=== PATIENT | female | born 1935 | race Caucasian/White ===

== ENCOUNTER → 2017-11-03 | Outpatient (CLI) | payer OTHER ==
[~2017-11-03] MED LIST: ARTIFICIAL TEA1 EACH BOTHEYES; ASPI81CH PO; ASPI81EC PO; ATEN25 PO; CALCAVITD PO; CEPH500 PO; CYAN1000 PO; DOCU100 PO; DONE5 PO; FERR325 PO; FURO20 PO; HYDACE5 PO; HYDCHL25 PO; Hair, Skin & N1 EACH PO; LISI5 PO; METH5 PO; MORP20ER PO; NITR100CA PO; OMEP20ER PO; OXYACE5T PO; POLY17UD PO; POTA8 PO; PSYL5.85P PO; SENN187 PO; SENNA; SERT25 PO; VITAMIN D31000 UNIT PO
[2017-11-03 10:50] LABS: Source, Urine Catheter
[2017-11-03 11:08] LABS: Appearance, Urine Hazy (Clear); Bilirubin, Urine Neg (Neg); Blood, Urine 1+ (Neg); Color, Urine Yellow (P-Yellow); Glucose Qualitative, Urine Neg (Neg); Ketones, Urine Neg (Neg); Leukocyte Esterase, Urine 3+ (Neg); Nitrite, Urine Pos (Neg); Protein, Urine 1+ (Neg); Specific Gravity, Urine 1.015 (1.003-1.022); Urobilinogen, Urine NORM (Normal)
[2017-11-03 11:22] LABS: White Blood Cells, Urine TNTC /hpf (0-5)
[2017-11-03 11:23] LABS: Bacteria Many /hpf; Squamous Epithelial Cells Rare /hpf (Few)
== END | disposition home or self-care (01) ==
LOC: LAB RH 10:49
PROVIDERS: Family Medicine
DX: N39.0 Urinary tract infection, site not specified (principal)
CPT/HCPCS: 81001; 87077; 87086; 87186

== ENCOUNTER → 2017-11-04 | Outpatient (CLI) | payer OTHER | END | disposition home or self-care (01) | LOC: LAB RH 00:01 | DX: N39.0 Urinary tract infection, site not specified (principal) ==

== ENCOUNTER 2019-05-11 08:20 | Inpatient (IN) | payer OTHER ==
[~2019-05-11] VITALS: Ht 154.9 cm; Wt 68.0 kg
[~2019-05-11 08:20] MED LIST changes: +POTA10T PO; -POTA8 PO
[2019-05-11 09:00] LABS: BASOPHILS ABSOLUTE AUTO 0.03 K/mm3 (0.00-0.23); BASOPHILS PERCENT AUTO 0 % (0-2); EOSINOPHILS ABSOLUTE AUTO 0.33 K/mm3 (0.00-0.68); EOSINOPHILS PERCENT AUTO 5 % (0-6); Hematocrit 30.6 % (33.0-51.0); IMMATURE GRAN ABSOLUTE AUTO 0.08 K/mm3 (0.00-0.10); IMMATURE GRAN PERCENT AUTO 1 % (0-1); LYMPHOCYTES ABSOLUTE AUTO 1.26 K/mm3 (0.84-5.20); LYMPHOCYTES PERCENT AUTO 18 % (21-46); MONOCYTES ABSOLUTE AUTO 0.95 K/mm3 (0.16-1.47); MONOCYTES PERCENT AUTO 14 % (4-13); Mean Corpuscular HGB 31.1 pg (26.0-34.0); Mean Corpuscular HGB Conc 32.7 g/dL (31.5-36.5); Mean Corpuscular Volume 95 fL (80-100); Mean Platelet Volume 11.4 fL (9.1-12.4); NEUTROPHILS ABSOLUTE AUTO 4.29 K/mm3 (1.96-9.15); NEUTROPHILS PERCENT AUTO 62 % (41-73); Platelet Count 132 K/mm3 (150-400); RDW Coefficient Variation 12.9 % (11.7-14.2); RDW Standard Deviation 44.7 fL (35.1-46.3); Red Blood Cell Count 3.22 M/mm3 (3.80-5.20); White Blood Cell Count 6.94 K/mm3 (4.00-11.30)
[2019-05-11 09:27] LABS: Alanine Aminotransfer (ALT/SGP 47 U/L (12-78); Albumin, Blood 2.9 g/dL (3.4-5.0); Albumin/Globulin Ratio 0.7 (0.8-1.8); Alk Phos 161 U/L (50-136); Anion Gap 7 mmol/L (6-16); Aspartate Aminotrans (AST/SGOT 50 U/L (12-37); Bilirubin, Total 1.2 mg/dL (0.1-1.0); Blood Urea Nitrogen 29 mg/dL (8-24); Bun/Creatinine Ratio 31.5 (12.0-20.0); CO2, Blood 32 mmol/L (21-32); Calcium, Blood 8.8 mg/dL (8.5-10.1); Chloride, Blood 103 mmol/L (98-108); Creatinine, Blood 0.92 mg/dL (0.40-1.00); Globulin, Blood 4.1 g/dL (2.2-4.0); Glomerular Filtration Rate >60 (60-); Glucose, Blood 104 mg/dL (70-99); Potassium, Blood 2.8 mmol/L (3.5-5.5); Sodium, Blood 142 mmol/L (136-145)
[2019-05-11] MEDS ORDERED: MIRALAX17 GM PO (14:26)
[2019-05-11] MEDS ORDERED: LACT10SY PO (14:27)
[2019-05-11] MEDS ORDERED: Metamucil Smooth1 EA PO (14:28)
[2019-05-11] MEDS ORDERED: MORP15ER PO (14:31)
[2019-05-11] MEDS ORDERED: Feverall650 MG PR (14:34)
[2019-05-11] MEDS ORDERED: BISA10S PR (14:35)
[2019-05-11] MEDS ORDERED: Cough Syru100 MG/5 M PO (14:37)
[2019-05-11] MEDS ORDERED: Magnesium Citr296 ML PO (14:46)
[2019-05-11] MEDS ORDERED: ACET325 PO (14:48)
--- NOTE | 2019-05-11 15:00 | NUR ---
PT ADMITTED TO ROOM 312 FROM ED VIA [facility]. REQUIRED [facility] ASSIST TO TRANSFER FROM THERE TO BED WITH HER CRYING OUT. ALERT BUT CONFUSED. ABLE TO HEAR FROM L EAR AND RESPOND APPROPRIATELY BUT DOESN'T RESPOND OTHERWISE.
--- NOTE | 2019-05-11 19:46 | NUR ---
SHIFT SUMMARY DAUGHTER AT BEDSIDE AND DISCUSSED POLST IN CHART AND GOT CODE STATUS CHANGED. PT HASN'T ATTEMPTED TO CLIMB OOB BUT HAS BEEN INCONTINENT. TAKING MEDS WHOLE WITH NOT PROBLEM. FEEDING SELF. AT TIMES HAS AUDIBLE WHEEZES. ENCOURAGED TO KEEP O2 ON BUT REMOVES IT FREQUENTLY AND SAYS SHE DOESN'T WANT IT.
[2019-05-12 04:49] LABS: BASOPHILS ABSOLUTE AUTO 0.02 K/mm3 (0.00-0.23); BASOPHILS PERCENT AUTO 0 % (0-2); EOSINOPHILS ABSOLUTE AUTO 0.05 K/mm3 (0.00-0.68); EOSINOPHILS PERCENT AUTO 1 % (0-6); Hematocrit 26.2 % (33.0-51.0); Hemoglobin 8.7 g/dL (11.5-16.0); IMMATURE GRAN ABSOLUTE AUTO 0.09 K/mm3 (0.00-0.10); IMMATURE GRAN PERCENT AUTO 2 % (0-1); LYMPHOCYTES ABSOLUTE AUTO 0.97 K/mm3 (0.84-5.20); LYMPHOCYTES PERCENT AUTO 16 % (21-46); MONOCYTES ABSOLUTE AUTO 0.66 K/mm3 (0.16-1.47); MONOCYTES PERCENT AUTO 11 % (4-13); Mean Corpuscular HGB 30.5 pg (26.0-34.0); Mean Corpuscular HGB Conc 33.2 g/dL (31.5-36.5); Mean Platelet Volume 10.7 fL (9.1-12.4); NEUTROPHILS ABSOLUTE AUTO 4.36 K/mm3 (1.96-9.15); NEUTROPHILS PERCENT AUTO 71 % (41-73); Platelet Count 141 K/mm3 (150-400); RDW Coefficient Variation 12.8 % (11.7-14.2); RDW Standard Deviation 42.5 fL (35.1-46.3); Red Blood Cell Count 2.85 M/mm3 (3.80-5.20); White Blood Cell Count 6.15 K/mm3 (4.00-11.30)
[2019-05-12 04:50] LABS: Mean Corpuscular Volume 92 fL (80-100)
[2019-05-12 04:59] LABS: Anion Gap 7 mmol/L (6-16); Blood Urea Nitrogen 17 mg/dL (8-24); Bun/Creatinine Ratio 22.4 (12.0-20.0); CO2, Blood 31 mmol/L (21-32); Calcium, Blood 8.4 mg/dL (8.5-10.1); Chloride, Blood 104 mmol/L (98-108); Creatinine, Blood 0.76 mg/dL (0.40-1.00); Glomerular Filtration Rate >60 (60-); Glucose, Blood 98 mg/dL (70-99); Potassium, Blood 3.1 mmol/L (3.5-5.5); Sodium, Blood 142 mmol/L (136-145)
--- NOTE | 2019-05-12 05:01 | NUR ---
Shift summary: Pt very confused and almost deaf. Pt has no idea why or where she is. Curses alot in response to any question. Was able to get meds down with water after some convincing. Pt has occas cough. Iv pulled out by patient and restarted in right arm. Pt has large area of yeast on back nyasia area and back. Nystatin applied and picture was taken.
--- NOTE | 2019-05-12 17:56 | NUR ---
PATIENT DID NOT EAT DINNER THIS SHIFT DUE TO NOT BEING AWAKE ENOUGH. RN NOTIFIED.
--- NOTE | 2019-05-12 18:49 | NUR ---
END OF SHIFT SUMMARY: PATIENT REPORTED FEELING POORLY THIS MORNING. BY THIS EVENING, PATIENT WAS RESTING COMFORTABLY. PATIENT UP TO CHAIR FOR LUNCH. PATIENT APPEARED TO ENJOY BEING UP IN THE CHAIR EVIDENCED BY HER SMILE AND LOOKING AROUND THE ROOM AND INTO THE HALLWAY. FAMILY AT BEDSIDE AT MULTIPLE TIMES. THEY REPORTED CONCERNS ABOUT THE CARE THAT SHE RECEIVES AT [facility]. MESSAGE LEFT FOR GUIDO SEN. PATIENT HAD SOME AUDIBLE WHEEZES THIS AM. UTILIZED RT TO ASSESS AND DETERMINE TREATMENT. PATIENT REPOSITIONED THROUGHOUT THE DAY TO ASSIST WITH BREATHING. PATIENT YELLS "I DON'T NEED OXYGEN" REPEATEDLY WHEN THE O2 IS PLACED. PROTECTIVE PADS PLACED ON PATIENTS ELBOWS FOR BLANCHABLE RED AREAS.
--- NOTE | 2019-05-12 19:16 | NUR ---
Pt visit this evening. Pt is resting in bed with her eyes closed. Offered gentle voice 3 times with Pt remaining a sleep. Spoke with bedside nurse Gladys and on comming bedside nurse and discussed case. Both nurses request a conversation regarding code status with family. Gladys reports no concerns with symptoms at this time. KANDIS reports bedside nurse yesterday briefly discussed current POLST in chart with family and family has elected to keep Pt full code at this time. KANDIS reports family will be here to visit Pt in the morning. Palliative Care will remain available.
--- NOTE | 2019-05-13 05:05 | NUR ---
Shift summary: Pt has slept thru most of shift with an occasional cough. I could not get pt to take her medications. Pt changed x 2 during the night. Pt is incontinent of stool and urine. Pt has large yeast infection on her backside. Nystatin applied. Pt very confused and will not follow commands and is almost deaf.
[2019-05-13 05:12] LABS: BASOPHILS ABSOLUTE AUTO 0.04 K/mm3 (0.00-0.23); BASOPHILS PERCENT AUTO 1 % (0-2); EOSINOPHILS ABSOLUTE AUTO 0.09 K/mm3 (0.00-0.68); EOSINOPHILS PERCENT AUTO 2 % (0-6); Hematocrit 30.3 % (33.0-51.0); IMMATURE GRAN ABSOLUTE AUTO 0.08 K/mm3 (0.00-0.10); IMMATURE GRAN PERCENT AUTO 1 % (0-1); LYMPHOCYTES PERCENT AUTO 10 % (21-46); MONOCYTES ABSOLUTE AUTO 0.54 K/mm3 (0.16-1.47); MONOCYTES PERCENT AUTO 9 % (4-13); Mean Corpuscular HGB 30.4 pg (26.0-34.0); Mean Corpuscular Volume 92 fL (80-100); Mean Platelet Volume 10.9 fL (9.1-12.4); NEUTROPHILS ABSOLUTE AUTO 4.53 K/mm3 (1.96-9.15); NEUTROPHILS PERCENT AUTO 77 % (41-73); Platelet Count 168 K/mm3 (150-400); RDW Coefficient Variation 12.7 % (11.7-14.2); RDW Standard Deviation 42.5 fL (35.1-46.3); Red Blood Cell Count 3.29 M/mm3 (3.80-5.20); White Blood Cell Count 5.88 K/mm3 (4.00-11.30)
[2019-05-13 05:32] LABS: Anion Gap 8 mmol/L (6-16); Blood Urea Nitrogen 12 mg/dL (8-24); Bun/Creatinine Ratio 18.8 (12.0-20.0); CO2, Blood 25 mmol/L (21-32); Calcium, Blood 8.9 mg/dL (8.5-10.1); Chloride, Blood 106 mmol/L (98-108); Creatinine, Blood 0.64 mg/dL (0.40-1.00); Glomerular Filtration Rate >60 (60-); Glucose, Blood 82 mg/dL (70-99); Potassium, Blood 3.6 mmol/L (3.5-5.5); Sodium, Blood 139 mmol/L (136-145)
--- NOTE | 2019-05-13 11:49 | NUR ---
PATIENT STATUS: LATE ENTRY: [address] NUNES ABOUT PATIENT'S STATUS. PATIENT RESPONDS TO PHYSICAL STIMULI (REPOSITIONING) AND WILL ANSWER SOME QUESTIONS WITH A GENERAL RESPONSE. PATIENT DOES NOT OPEN HER EYES TO STIMULI. THIS IS A CHANGE FROM YESTERDAY. DR. NUNES AWARE. DISCUSSED WITH PALLIATATIVE RN, ROSE MARIE. SHE WILL MEET WITH THE FAMILY AT 12:30.
--- NOTE | 2019-05-13 12:59 | NUR ---
MEDICATIONS AND FEEDING: ATTEMPTED AGAIN TO SEE IF PATIENT COULD BE ROUSED TO EAT OR TAKE MEDICATIONS SAFELY. PATIENT RESPONDED "YES" WHEN ASKED IF SHE WAS HUNGRY. UNABLE TO SAFELY MOVE TO THE CHAIR. PATIENT DID NOT OPEN EYES OR FOLLOW DIRECTIONS ENOUGH TO SAFELY ADMINISTER MEDICATIONS OR ATTEMPT TO FEED. NOTIFIED DR. NUNES. NEW ORDER FOR ANTIBIOTICS TO BE IV AGAIN. ALSO DISCUSSED THAT PATIENT WILL BE UNABLE TO GET HER LONG ACTING MORPHINE. DR. NUNES WILL ADDRESS. PATIENT IS AT BEDSIDE AND UNDERSTANDS INABILITY TO SAFELY FEED THEIR FAMILY MEMBER. MESSAGE LEFT FOR Jazmine ALVES-MARILU TO VISIT FAMILY PER FAMILY REQUEST.
--- NOTE | 2019-05-13 15:26 | NUR ---
Clinical Visit: Pt appears to be sleeping soundly. She did not wake during the time palliative was in the room. Two visits to this room today: Pt's daughter, Denae, is bedside. She reports that pt hasn't wanted to eat, sleeps all the time. Denae wanted to talk about placement, so Sonya Trimble was asked to see her. Called back to room to discuss hospice care. Family is ready to take this step, as they are watching the pt's decline. They have watched several family members on hospice and state "It's time." Filled out new POLST, answered questions for family. Placed call placed to Dr. Santos. He would like the IV restarted and antibiotic ran. Message left for nurse to restart IV and give medication. No other concerns with discharge. Did discuss with hospice liasonMine. Will remain available. ERIKA still needs signature and is in the chart.
--- NOTE | 2019-05-13 18:37 | NUR ---
END OF SHIFT SUMMARY: PATIENT CONTINUED TO BE LETHARGIC DURING SHIFT. RESPONSIVE TO VERBAL AND PHYSICAL STIMULI (REPOSITION AND CHANGES). PATIENT WOULD RESPOND TO YES AND NO QUESTIONS AT TIMES. PATIENT UNABLE TO FOLLOW DIRECTIONS OR OPEN EYES. PALLIATIVE CARE RNMiriam AND CIGAR HEAD PEGGERJazmine ABLE TO SPEAK WITH FAMILY. PLAN IS FOR THE PATIENT TO DISCHARGE ON HOSPICE TO [facility] TOMORROW. PATIENT APPEARED PAINFUL THIS EVENING WITH FURROWED BROWN AND RESTLESSNESS. SPOKE WITH DR. NUNES AND RECEIVED NEW ORDER FOR PO ROXANOL. MEDICATED ONCE AND REPOSITIONED PATIENT. PATIENT APPEARS CALM AND COMFORTABLE AT THIS TIME. FAMILY REQUESTS NO MORE BLOOD PRESSURES RELATED TO THE PAIN THAT IT CAUSES THE PATIENT. DR. NUNES INFORMED, NEW ORDER TO DISCONTINUE BLOOD PRESSURES RECEIVED. PATIENT TOLERATING IV ANTIBIOTICS WELL.
--- NOTE | 2019-05-14 01:00 | NUR ---
HOSPITALIST DR CHATMAN CHANGE CODE STATUS FROM FULL CODE TO DNR PER DR VIOLETA JAMES IN CHART ON 05/13/19. NO IV ACCESS ORDERED.
--- NOTE | 2019-05-14 04:22 | NUR ---
SHIFT SUMMARY PATIENT HAD NO ACUTE CHANGES OBSERVED. HX DEMENTIA, EXTREMELY SHOALWATER AND BEDFAST. TELE WAS DC'D ON DAY SHIFT AND REMOVE NOC SHIFT. PATIENT PULLED OUT IV AND NO IV ACCESS ORDERED PER HOSPITALIST DR CHATMAN. DR ALSO CHANGED CODE STATUS FROM FULL CODE TO DNR PER DR VIOLETA JAMES IN PATIENT CHART. PATIENT GOING ON HOSPICE TO [facility] PER DAY RN. ROXANOL 10 MG GIVEN PER GENERALIZE PAIN. PATIENT RESTLESS AND TRY TO EXIT BED X FOUR. AGITATES QUICKLY CURSING AT STAFF AND SETTLES BACK DOWN. DOESN'T USE CALL LIGHT. BED ALARM ACITVATED. WILL CONTINUE TO MONITOR UNTIL DAY SHIFT NURSE ASSUMES CARE. NO VITALS TAKEN PER ORDERS AND FAMILY.
--- NOTE | 2019-05-14 09:56 | NUR ---
PT. REFUSED ALL MEDS, KEPT YELLING, "GODDAMMIT GET AWAY FROM ME" OVER AND OVER AGAIN.
[2019-05-14] MEDS ORDERED: MORP20L SL (10:59)
[2019-05-14] MEDS ORDERED: FLUC100 PO (11:01)
[2019-05-14] MEDS ORDERED: ALBU2.5V5 INH (11:01)
[2019-05-14] MEDS ORDERED: Pedi-Dri 100,0060 GM TOP (11:02)
[2019-05-14] MEDS ORDERED: AMOC200S75 PO (11:02)
--- NOTE | 2019-05-14 11:38 | NUR ---
PT. TRANSFERRED TO [facility]IA [facility]. PT. RETURNING TO AND WILL BE ON HOSPICE. PT CLEAN AND DRY. REPORT CALLED TO NAM AMES AT [facility].
== END 2019-05-14 11:36 | DRG 177 ==
LOC: ER 08:20 → ERHOLD 08:21 → MEDS 13:12 → ENPENDDIS 05-14 09:05 → MEDS 05-14 11:36
PROVIDERS: Emergency Medicine; ADMIT Internal Medicine
DX: J69.0 Pneumonitis due to inhalation of food and vomit (principal); J96.01 Acute respiratory failure with hypoxia; Z51.5 Encounter for palliative care; D63.8 Anemia in other chronic diseases classified elsewhere; Z74.01 Bed confinement status; Z79.891 Long term (current) use of opiate analgesic; F03.90 Unspecified dementia, unspecified severity, without behavioral disturbance, psychotic disturbance, mood disturbance, and anxiety; R13.10 Dysphagia, unspecified; R21 Rash and other nonspecific skin eruption; I10 Essential (primary) hypertension; E78.5 Hyperlipidemia, unspecified; F32.9 Major depressive disorder, single episode, unspecified; Z86.73 Personal history of transient ischemic attack (TIA), and cerebral infarction without residual deficits; D64.9 Anemia, unspecified; Z87.891 Personal history of nicotine dependence; Z66 Do not resuscitate; E87.6 Hypokalemia; G89.29 Other chronic pain; H91.90 Unspecified hearing loss, unspecified ear
CPT/HCPCS: 36415; 71046; 80048; 80053; 83880; 85025; 92610; 93005; 93010; 94640; 94644; 94760; 96365; 96366; 96367; 99285-25; A9270; G0378; J0456; J0696; J1650; J3480; J7030; J7050

== ENCOUNTER 2019-10-25 19:36 | Emergency (ER) | payer OTHER ==
[~2019-10-25] VITALS: Ht 147.3 cm; Wt 45.4 kg
[~2019-10-25 19:36] MED LIST changes: +ACET325 PO; +ALBU2.5V5 INH; +AMOC200S75 PO; +BISA10S PR; +Cough Syru100 MG/5 M PO; +FLUC100 PO; +Feverall650 MG PR; +LACT10SY PO; +MIRALAX17 GM PO; +MORP15ER PO; +MORP20L SL; +Magnesium Citr296 ML PO; +Metamucil Smooth1 EA PO; +Pedi-Dri 100,0060 GM TOP
== END 2019-10-25 21:26 | disposition home or self-care (01) ==
LOC: ER 19:36
DX: M25.551 Pain in right hip (principal); S00.83XA Contusion of other part of head, initial encounter; W06.XXXA Fall from bed, initial encounter; Z88.2 Allergy status to sulfonamides; Z88.1 Allergy status to other antibiotic agents; Z91.040 Latex allergy status; Z79.899 Other long term (current) drug therapy; I10 Essential (primary) hypertension; E78.5 Hyperlipidemia, unspecified; D64.9 Anemia, unspecified; F03.90 Unspecified dementia, unspecified severity, without behavioral disturbance, psychotic disturbance, mood disturbance, and anxiety; Z87.891 Personal history of nicotine dependence
CPT/HCPCS: 73502; 99283-25

== ENCOUNTER → 2020-11-27 | Outpatient (CLI) | payer OTHER ==
[2020-11-27 11:41] LABS: Alanine Aminotransfer (ALT/SGP 14 U/L (12-78); Albumin/Globulin Ratio 1.1 (0.8-1.8); Alk Phos 101 U/L (50-136); Anion Gap 4 mmol/L (6-16); Aspartate Aminotrans (AST/SGOT 13 U/L (12-37); Bilirubin, Total 0.9 mg/dL (0.1-1.0); Blood Urea Nitrogen 14 mg/dL (8-24); Bun/Creatinine Ratio 26.6 (12.0-20.0); CO2, Blood 30 mmol/L (21-32); Calcium, Blood 8.6 mg/dL (8.5-10.1); Chloride, Blood 108 mmol/L (98-108); Creatinine, Blood 0.53 mg/dL (0.40-1.00); Globulin, Blood 2.8 g/dL (2.2-4.0); Glomerular Filtration Rate >60 (60-); Glucose, Blood 82 mg/dL (70-99); Potassium, Blood 3.1 mmol/L (3.5-5.5); Sodium, Blood 142 mmol/L (136-145); Total Protein, Blood 5.8 g/dL (6.4-8.2)
== END | disposition home or self-care (01) ==
LOC: LAB RH 10:04 → EDSTATUS 11:24
PROVIDERS: Family Medicine
DX: I10 Essential (primary) hypertension (principal)
CPT/HCPCS: 80053

== ENCOUNTER → 2021-05-20 | Outpatient (CLI) | payer OTHER ==
[2021-05-20 14:30] LABS: Hematocrit 37.2 % (33.0-51.0); Hemoglobin 11.9 g/dL (11.5-16.0); Mean Corpuscular HGB 28.5 pg (26.0-34.0); Mean Corpuscular Volume 89 fL (80-100); Platelet Count 93 K/mm3 (150-400); RDW Coefficient Variation 15.6 % (11.7-14.2); RDW Standard Deviation 50.6 fL (35.1-46.3); Red Blood Cell Count 4.18 M/mm3 (3.80-5.20); White Blood Cell Count 12.41 K/mm3 (4.00-11.30)
[2021-05-20 15:26] LABS: Anion Gap 7 mmol/L (6-16); Blood Urea Nitrogen 16 mg/dL (8-24); Bun/Creatinine Ratio 29.5 (12.0-20.0); CO2, Blood 29 mmol/L (21-32); Calcium, Blood 8.9 mg/dL (8.5-10.1); Chloride, Blood 106 mmol/L (98-108); Creatinine, Blood 0.54 mg/dL (0.40-1.00); Glomerular Filtration Rate >60 (60-); Glucose, Blood 100 mg/dL (70-99); Potassium, Blood 2.8 mmol/L (3.5-5.5); Sodium, Blood 142 mmol/L (136-145)
== END | disposition home or self-care (01) ==
LOC: EDSTATUS 09:33 → LAB RH 13:02
PROVIDERS: Family Medicine
DX: J96.01 Acute respiratory failure with hypoxia (principal)
CPT/HCPCS: 80048; 83880; 85027